=== PATIENT | female | born 1960 | race Caucasian/White ===

== ENCOUNTER 2024-01-17 12:31 | Emergency (ER) | payer BC, SELFPAY ==
[2024-01-17 12:35] VITALS: BP 117/78
--- NOTE | 2024-01-17 13:00 | ED.GENMED ---
History of Present Illness
General
Chief Complaint: Cold/Flu/URI Symptoms
Source: patient
Exam Limitations: none
Time Seen by Provider: 01/17/24 12:49
Nursing documentation reviewed up to this point in time: agreed with
History of Present Illness
History of Present Illness:
Patient to ED with complaint of worsening cough. Symptoms started this past week. States she has had fever 102 and above since . Seen by PCP and tested neg for flu and covid Started on Doxycyline. SHe has had 3 doses. Brought to ED by
spouse.
Past History
Past History
ED Past Medical History: Hypercholesterolemia
ED Past Surgical History: Cholecystectomy
Social History
Tobacco: Non-smoker
Alcohol: None
Drug: None
Review of Systems
Review of Systems
Allergies reviewed?: Yes
All Other Systems: ROS reviewed and negative except as documented in HPI and ROS
Constitutional: Reports fever and fatigue
EENT: Reports no symptoms
Respiratory: Reports cough and trouble breathing
Cardiac: Reports no symptoms
ABD/GI: Reports no symptoms
Musculoskeletal: Reports no symptoms
Skin: Reports no symptoms
Neurological: Reports no symptoms
Psychiatric: Reports no symptoms
Phy Exam
General Physical Exam
General Presentation: well appearing and mild distress
General age: appears stated age
General Skin: warm and dry
General Habitus: normal
General Mental: alert
General Hydration: appears well hydrated
Cardiovascular Exam
Cardiovascular Exam: regular rate/rhythm and no edema
Pulmonary Exam
Pulmonary Exam: no respiratory distress and chest non tender
Cough: coarse cough
Breath Sounds: Crackles: left upper and left lower and Rhonchi: right upper and right lower
Musculoskeletal Exam
Musculoskeletal Exam: full ROM and neuro vasc intact
Skin Exam
Skin Exam: normal color, warm/dry and no rash
Psychiatric Exam
Psychiatric Exam: normal mood/affect
Course
Orders/Labs/Results
Orders:
Orders
01/17/24 13:09
Chest [CR Chest - 2 Views ] Urgent
Comment:
Reason For Exam: cough
01/17/24 13:16
CBC/With Diff [Complete Blood Count/With Diff] Urgent
CMP [Comprehensive Metabolic Panel] Urgent
COVID-19 Antigen Urgent
Source: Nasal Swab
INF RAPID [Influenza A+B Rapid Molecular] Urgent
PEG Source: Nasal Swab
Specimen Description:
01/17/24 13:36
0.9% Sodium Chloride 1000 ml [Nss] 1,000 ml IV BOLUS
01/17/24 13:55
Ipratropium/Albuterol Sulfate [Duoneb] 3 ml INH R NOW STA
01/17/24 14:45
Dexamethasone Sod Phosphate [Decadron] 10 mg IV NOW STA
Abnormal Lab Results
01/17/24
13:16
MCH 31.1 H pg
(27.0-31.0)
Absolute Monos (auto) 0.7 H 10^3/uL
(0.1-0.6)
Lymphocytes % 20.0 L %
(20.5-51.1)
Monocytes % 9.6 H %
(1.7-9.3)
AST 53 H U/L
(14-36)
01/17/24 13:16
01/17/24 13:16
Vital Signs
Initial and Last Documented VS:
Initial Vital Signs
Temp Pulse Resp BP Pulse Ox
98.3 F 96 16 117/78 94
01/17/24 12:35 01/17/24 12:35 01/17/24 12:35 01/17/24 12:35 01/17/24 12:35
Last Documented Vital Signs
Temp Pulse Resp BP Pulse Ox
98.3 F 96 16 117/78 94
01/17/24 12:35 01/17/24 12:35 01/17/24 12:35 01/17/24 12:35 01/17/24 12:35
*Radiology
Radiology exam reviewed: radiology read reviewed
*Pulse Oximetry
Patient hypoxic: no
*Critical Care Note
Total Time (30-74mins, 75-104mins- exclusive of procedures): Not Applicable
ED Attending Note
-
Portions of this chart may have been created with voice recognition software.� Occasional wrong word or��sound alike� substitutions may have occurred due to the inherent limitations of voice recognition software.
Discharge Plan
Departure
Patient Disposition: Home (Routine Discharge)
Date of Disposition: 01/17/24
Time of Disposition: 14:50
Patient with high blood pressure during this ER visit?: No
Condition: Good
Covid-19: Not Applicable
Discharge Problem:
Pneumonia
Instructions: Fever, Adult (DC), Pneumonia
Prescriptions:
New
prednisone 10 mg Tablet
See Rx Instructions .ROUTE .COMPLEX Qty: 30 0RF
Rx Instructions:
Take By Mouth:
40 mg daily x3 days, 30 mg daily x3 days,
20 mg daily x3 days, 10 mg daily x3 days.
albuterol sulfate [Proventil HFA] 90 mcg/actuation HFA aerosol inhaler
2 puff inhalation Q4H PRN (Reason: shortness of breath or wheezing) Qty: 8.5 0RF
Referrals:
Abhay Mesa DO [Family Provider] - Follow up in 2-3 days
Activity Restrictions/Additional Instructions:
Return to the emergency department immediately for any changes in/worsening of your symptoms.
Interventions
Interventions:
*Risk Screen - Suicide Last Done: 01/17/24 12:43
*General Assessment Last Done: 01/17/24 12:43
*Neglect/Abuse Screening Last Done: 01/17/24 12:43
ED- Fall Risk Assessment Last Done: 01/17/24 13:18
*Nursing Disposition Last Done: 01/17/24 15:18
ED- Pulmonary Assessment Last Done: 01/17/24 13:18
Discharge Date and Time
Discharge Date/Time: 01/17/24 15:19
Print Language: [email or web address]
[2024-01-17 13:31] LABS: % Basophils 0.3 % (0-2); % Eosinophils 0.3 % (0-6); % Immature Granulocytes 0.3 % (0-0.5); % Monocytes 9.6 % (1.7-9.3); % Neutrophils 69.5 % (42.2-75.2); Absolute Lymphocytes 1.5 10^3/uL (1.2-3.4); Absolute Monocytes 0.7 10^3/uL (0.1-0.6); Absolute Neutrophils 5.3 10^3/uL (1.4-6.5); Hematocrit 40.3 % (37.0-47.0); Hemoglobin 14.1 g/dL (12.0-16.0); Mean Corpuscular Hgb 31.1 pg (27.0-31.0); Nucleated Red Blood Cells % 0 %; Red Blood Cell Count 4.53 10^6/uL (4.20-5.40); Red Cell Dist. Width 12.1 % (11.5-14.5); White Blood Cell Count 7.6 10^3/uL (4.8-10.8)
[2024-01-17 13:42] LABS: ALT (SGPT) 28 U/L (0-35); AST (SGOT) 53 U/L (14-36); Albumin 4.1 g/dl (3.5-5.0); Alkaline Phosphatase 80 U/L (38-126); Blood Urea Nitrogen 17 mg/dl (7-17); Calcium 8.9 mg/dl (8.4-10.2); Carbon Dioxide 28 mmol/L (22-30); Chloride 105 mmol/L (98-107); Glucose 93 mg/dl (70-99); Sodium 139 mmol/L (135-145); Total Bilirubin 0.6 mg/dl (0.2-1.3); Total Protein 6.6 g/dl (6.3-8.2); eGFR > 60.00
[2024-01-17] MEDS: NSS 1000 IV (13:58)
[2024-01-17] MEDS: DUONEB 3 ML INH (13:58)
[2024-01-17 14:07] LABS: COVID-19 Antigen Negative (Negative)
[2024-01-17] MEDS: DECADRON 10 MG IV (15:04)
== END 2024-01-17 15:19 | disposition home or self-care (01) ==
LOC: EMR 12:31
PROVIDERS: Nurse Practitioner; EMERGENCY PHYSICIAN Student in an Organized Health Care Education/Training Program; FAMILY PHYSICIAN Family Medicine
DX: J18.9 Pneumonia, unspecified organism (principal); Z11.52 Encounter for screening for COVID-19
CPT/HCPCS: 99284; 96374; 96361; 94640; 71046; 80053; 85025; 87502; 87811